=== PATIENT | male | born 1940 | race Caucasian/White ===

== ENCOUNTER → 2024-09-25 08:39 | Outpatient (CLI) | payer MEDICARE, SELFPAY ==
--- NOTE | 2024-09-25 13:08 | ST.SWALLOW ---
Visit Care Team Role Provider Type John Krishna MD Attending Provider Physician Referring Provider Specialty: Ear, Nose, Throat Address: [address] [place] [address], [id number] Email: [email or web address] Modified Barium Swallow Study CHILD CAREGIVER Modified Barium Swallow Study Start: 09/25/24 11:58 Freq: Status: Active Protocol: Document 09/25/24 11:58 LNK (Rec: 09/25/24 13:06 LNK [id number]) Modified Barium Swallow Study Total Time Visit Start Time 09:00 Visit Stop Time 09:45 Total Visit Minutes [address] Krishna ENT Reason for Referral dysphagia Setting Setting Outpatient Care Patient Information Identification Type Name,Date of Patient History Pt was seen for a Modified Barium Swallow Study at the referral of Dr. Krishna ENT secondary to difficulty with swallowing solids such as bread, crackers and some meats . Pt described a sensation of foods getting stuck in his throat. He reported that he will cough up pieces of foods he has eaten up to several hours after meals. he stated he will, at times, cough on liquids. Pt denied difficulty with pills, noting he only takes Lisinopril which is a small pill. Subjective Observations Pt was seated in the fluoroscopy chair with directions and procedures described for him. He indicated he understood and agreed to proceed. Patient Positioning Position View Lat-A/P Imaging Lateral View Textures Administered Trials Presented Thin Liquid via Spoon (IDDSI 0 ),Thin Liquid via Cup (IDDSI 0 ),Extremely Thick Liquid via Spoon (IDDSI 4),Regular (IDDSI 7) Barium Tablet Yes The IDDSI Framework Protocol: IDDSI.1 Oral Impairment Source: The Modified Barium Swallow Impairment Profile (MBSImP??) Lip Closure No labial escape Tongue Control During Bolus Hold Cohesive bolus between tongue to palatal seal Bolus Preparation/Mastication Timely & efficient chewing & mashing Bolus Transport/Lingual Motion Brisk tongue motion Oral Residue Complete oral clearance Location Tongue Initiation of Pharyngeal Swallow Bolus head at posterior laryngeal surface of epiglottis Additional Oral Impairment Observations *OME and DKS were observed to be WNL. *Dentition natural and in good hygiene *Mastication observed with rotary chew pattern. *Good bolus formation, control and AP transition. Pharyngeal Impairment Source: The Modified Barium Swallow Impairment Profile (MBSImP??) Soft Palate Elevation No bolus between soft palate & pharyngeal wall Laryngeal Elevation Part.sup.move.thyroid cart/ part.approx.arytenoids to epiglot.petiole Anterior Hyoid Excursion Partial anterior movement Epiglottic Movement No inversion Laryngeal Vestibular Closure Incomplete; narrow column air/ contrast in laryngeal vestibule Pharyngeal Stripping Wave Present - diminished Pharyngoesophageal Segment Opening Complete distention & complete duration; no obstruction of flow Tongue Base Retraction Wide column of contrast/air betwn tongue base & post. pharyngeal wall Pharyngeal Residue Collection of residue within/ on pharyngeal structures Location Valleculae Additional Pharyngeal Impairment *Reduced in tongue base Observations retraction strength *Reduced hyolaryngeal elevation *No epiglottic inversion observed *Liquid contrast penetration into the laryngeal vestibule ( silent) PAS2 Laryngeal penetration of semisolid and solid trials to the vocal folds (silent) PAS5 *Popeye tracheal aspiration ( silent) PAS7 *Cued cough partially cleared anterior tracheal wall *Significant pooling of semisolid, solid and solid residue in valeculla; vallecular pooling of liquids noted post swallows *Barium tablet caught in valeculla - several water swallows to clear tablet to the stomach *Chin tuck strategy did not improve epiglottal inversion A/P View Textures Administered Trials Presented Thin Liquid via Spoon (IDDSI 0 ) The IDDSI Framework Protocol: IDDSI.1 A/P View Observations Pharyngeal Contraction Complete Esophageal Clearance Upright Position Complete clearance; esophageal coating Vocal Fold Function Good Esophageal Function WFL Additional A-P Observations *Thin barium liquid and a calibrated tablet were assessed in the AP position *Esophageal phase of swallow observed to be WFL Clinical Impressions Dysphagia Type Pharyngeal Findings Pt presented with moderate pharyngeal dysphagia and silent aspiration risk. Pt's epiglottis did not invert across all trials. Posterior pharyngeal wall stripping was absent affecting bolus control through the pharynx. Laryngeal penetration and tracheal aspiration were observed. Pt did not reflexively respond to penetration/aspiration. Cued coughing partially cleared laryngeal/tracheal residue. Swallow therapy recommended to target base of tongue strength as well as safe swallow strategies Single sips recommended to pt with liquids to reduce aspiration risk Rehabilitation Potential Good Patient Appropriate for Therapy Yes Recommendations Diet Comments No diet change recommended at this time Additional Dietary Needs Single Sips Treatment Plan Therapy Recommendations Outpatient Speech Therapy,Base of Tongue Exercises
== END ==
PROVIDERS: Referring Provider Otolaryngology; Visit Provider Otolaryngology
DX: R13.13 Dysphagia, pharyngeal phase (principal)
CPT/HCPCS: 74230; 92611

== ENCOUNTER 2025-04-24 14:30 | Outpatient (RCR) | payer MEDICARE, SELFPAY ==
--- NOTE | 2025-01-08 17:48 | ST.OPIE ---
Visit Care Team Role Provider Type Doctor MD Myriam Family Provider Non-Staff Primary Care Provider Specialty: Medical Address: Phone: Fax: Email: John Krishna MD Attending Provider Physician Referring Provider Specialty: Ear, Nose, Throat Address: [address] [place] [address], [id number] Email: [email or web address] Speech-Language Pathology Initial Evaluation [employer] Clinical Swallow Evaluation Start: 01/08/25 17:17 Freq: Status: Active Protocol: Document 01/08/25 17:17 MM (Rec: 01/08/25 17:48 MM Desktop) Clinical Swallow Evaluation Session Time Visit Start Time 15:15 Visit Stop Time 16:00 Total Visit Minutes 45 Visit Information Visit Number Initial Evaluation Plan of Care Dates 01/08/2025-04/10/2025 Insurance Information Medicare; no PA, no copay, KX modifier after 19 PT/ST visits PCY Referral Referring Provider Dr. John Krishna Reason for Referral Dysphagia Setting Assessment Location Outpatient Care Visit Type Note Type Initial evaluation Next Note Type Next Note Type Treatment Note Patient Information Identification Type Name History Pt is an 84 yo male who presented to [facility] Speech Therapy at the referral of Dr. Krishna for evaluation of dysphagia on 01/08/2025. Pt reported c/o globus sensation with solid foods and intermittent coughing and regurgitation of PO that has been occurring for ~2 years and gradually worsened over time. Pt denied medical hx of CVA, TBI, or other neurological disorders, PNA, COPD, or other respiratory disorders, and GERD. Pt reported his baseline diet is regular solids and thin liquids, although swallowing solids is effortful. Pt participated in a Modified Barium Swallow Study (MBSS) at [facility] on 09/25/2024 which revealed moderate pharyngeal dysphagia characterized by reduced tongue base retraction, reduced hyolaryngeal elevation , absent epiglottic inversion, incomplete laryngeal vestibule closure, and diminished pharyngeal stripping wave which resulted in pharyngeal residue as well as laryngeal penetration and tracheal aspiration which were silent in nature given pt did not reflexively respond. Of note, cued coughing was observed to partially clear laryngeal and tracheal residue . It was recommended the pt receive OP ST services targeting pharyngeal dysphagia with exercises and safe swallow strategies. Subjective Observations Pt arrived on time to initial evaluation with his , Fátima, who accompanied him to the therapy room and was present throughout the evaluation. Pt was engaged and pleasant throughout the evaluation. Reported by Patient/Caregiver Pain/Discomfort No Other Symptoms Coughing,Difficulty swallowing solids,Food gets stuck Current Diet Regular (IDDSI 7) Baseline Feeding Method Independent in self-feeding Type of Patient Questionnaire (e.g., EAT Eating Assessment Tool-10 (EAT -10, MDADI, etc.) -10) Results Pt completed the Eating Assessment Tool-10 (EAT-10), a patient-reported outcome measure used to assess swallowing difficulties, or dysphagia. It consists of 10 questions that explore how swallowing issues affect a pt? s daily life, including the physical and emotional challenges they experience. Pt ?s rate the severity of their swallowing difficulties on a scale from 0 (no problem) to 4 (severe problem). A total score of 10 was reported, scores of 3 or higher are abnormal and may indicate problems will swallowing efficiency or safety. The IDDSI Framework Protocol: IDDSI.1 Objective Assessment Mental Status Alert,Responsive,Cooperative Oral Integrity WFL Dentition Within normal limits Lip Function Within normal limits Tongue Function Within normal limits Jaw Function Within normal limits Hard/Soft Palate Function Within normal limits Respiratory Sufficiency Within normal limits Comment Oral mechanism exam revealed adequate dentition, oral health, and cranial nerves grossly intact bilaterally. No baseline cough observed prior to PO trials. Pt was able to easily and effectively elicit a volitional cough, subjectively judged to have glottal attack. Food and Liquid Trials Position During Assessment Upright (90 degrees),In chair Liquids Trialed Thin (IDDSI 0) Solid Trials Regular (IDDSI 7) Administration Type Cup single sip,Self-feeding Oral Impairment Within normal limits Oral Phase Comments Pt demonstrated adequate bolus retrieval, oral containment, bolus manipulation, and oral clearance across PO trials of thin liquids (3 oz water) via cup sip and regular solid (x1 cindy cracker). Pharyngeal Impairment Moderately impaired Pharyngeal Phase Comments Clinical signs/symptoms of pharyngeal dysphagia include multiple swallows and intermittent cough with partial regurgitation of PO. Pt endorsed globus sensation / p regular solid trials and independently utilized liquid wash to attempt to clear. This is consistent with pt report and MBSS report which revealed moderate pharyngeal dysphagia . Fatigue/Endurance Endurance WNL The IDDSI Framework Protocol: IDDSI.1 Findings Swallowing Function Pharyngeal phase dysphagia Severity of Swallow Impairment Moderately impaired Prognosis Good Based on Cognitive status,Family support,Other (comment) Comment Ambulatory status, respiratory status, good oral health Impact on Safety and Functioning Risk for aspiration Recommendations Swallowing Treatment Yes Frequency 1/wk Duration 30 minutes Recommended Solids Regular (IDDSI 7) Recommended Liquids Thin (IDDSI 0) Other Recommendations Based on MBSS results, clinical swallow evaluation, and pt report, the pt presents with moderate pharyngeal dysphagia resulting in pharyngeal residue as well as silent laryngeal penetration and tracheal aspiration. ST recommends continuing baseline diet of regular solids and thin liquids, this is supported by pt's respiratory stability on room air, ambulatory status, good oral health, independence for feeding, and OME/CNE WFL. ST also recommends further OP ST tx consisting of safe swallow strategies (sit upright, slow rate, small bites/sips, alternate bites with sips, supraglottic swallow, oral care) and swallow exercises. Safety Precautions/Swallowing Remain upright (90 degrees) Recommendations during all oral intake,Upright position at least 30 minutes after meals,Small bites and sips when eating,Slow rate; swallow between bites, Alternate liquids and solids, Strict oral care after intake Medication Recommendations As Tolerated Education Patient/Caregiver Education Described results of evaluation,Patient expressed understanding of evaluation, Patient expressed agreement with goals & treatment plans, Family/caregivers expressed understanding of evaluation, Family/caregivers expressed agreement with goals & treatment plans,Patient expressed understanding of safety precautions,Family/ caregivers expressed understanding of safety precautions Goals Short-term Goals STG1: Pt will use safe swallow strategies (sit upright, slow rate, small bites/sips, alternate bites with sips, supraglottic swallow, etc.) independently to reduce risk of aspiration and facilitate clearance of bolus through pharynx. STG2: Pt will perform exercises to increase strength of swallow musculature with emphasis on tongue base retraction, hyolaryngeal elevation, epiglottic inversion, laryngeal vestibule closure and PPW constriction independently y to improve swallow safety and efficiency. STG3: Pt will tolerate application of NMES during swallow exercises in order to improve swallow safety and efficiency. Long-term Goals Pt will consume the safest and least restrictive diet with no clinical signs/symptoms of pharyngeal dysphagia in order to meet nutrition/hydration needs.
--- NOTE | 2025-01-08 17:50 | ST.OPPOC ---
Physical, Occupational & Speech Therapy At [facility] Visit Care Team Role Provider Type Doctor MD Myriam Family Provider Non-Staff Primary Care Provider Address: Phone: Fax: John Krishna MD Attending Provider Physician Referring Provider Address: [address] [place] [address], [address] Speech Pathology Plan of Care Plan of Care Dates 01/08/2025-04/10/[address] John Krishna Patient History Pt is an 84 yo male who presented to [facility] Speech Therapy at the referral of Dr. Krishna for evaluation of dysphagia on 01/08/2025 . Pt reported c/o globus sensation with solid foods and intermittent coughing and regurgitation of PO that has been occurring for ~2 years and gradually worsened over time. Pt denied medical hx of CVA, TBI, or other neurological disorders, PNA, COPD, or other respiratory disorders, and GERD. Pt reported his baseline diet is regular solids and thin liquids, although swallowing solids is effortful . Pt participated in a Modified Barium Swallow Study (MBSS) at [facility] on 09/25/2024 which revealed moderate pharyngeal dysphagia characterized by reduced tongue base retraction, reduced hyolaryngeal elevation, absent epiglottic inversion, incomplete laryngeal vestibule closure, and diminished pharyngeal stripping wave which resulted in pharyngeal residue as well as laryngeal penetration and tracheal aspiration which were silent in nature given pt did not reflexively respond. Of note, cued coughing was observed to partially clear laryngeal and tracheal residue. It was recommended the pt receive OP ST services targeting pharyngeal dysphagia with exercises and safe swallow strategies. MBS Comments Pt presented with moderate pharyngeal dysphagia and silent aspiration risk. Pt's epiglottis did not invert across all trials. Posterior pharyngeal wall stripping was absent affecting bolus control through the pharynx. Laryngeal penetration and tracheal aspiration were observed. Pt did not reflexively respond to penetration/aspiration. Cued coughing partially cleared laryngeal/tracheal residue. Swallow therapy recommended to target base of tongue strength as well as safe swallow strategies Single sips recommended to pt with liquids to reduce aspiration risk. Short-term Goals STG1: Pt will use safe swallow strategies (sit upright, slow rate, small single bites/sips, alternate bites with sips, supraglottic swallow, etc.) independently to reduce risk of aspiration and facilitate clearance of bolus through pharynx. STG2: Pt will perform exercises to increase strength of swallow musculature with emphasis on tongue base retraction, hyolaryngeal elevation, epiglottic inversion, laryngeal vestibule closure and PPW constriction independently y to improve swallow safety and efficiency. STG3: Pt will tolerate application of NMES during swallow exercises in order to improve swallow safety and efficiency. Long-term Goals Pt will consume the safest and least restrictive diet with no clinical signs/symptoms of pharyngeal dysphagia in order to meet nutrition/ hydration needs. Comment: Electronically Signed by: NORMA Peck 01/08/25 3818 If you are in agreement with this Plan of Care, please return a signed and dated copy. I have reviewed this Plan of Care and certify that the skilled therapy services above are required to meet the patient?s needs. Physician Signature Date Printed Name and Credentials Clinical Instructor Signature Printed Name and Credentials
--- NOTE | 2025-01-16 16:51 | ST.OPTN ---
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 MACHINE TENDER Treatment Note Start: 01/08/25 17:17 Freq: Status: Active Protocol: Document 01/16/25 16:01 MM (Rec: 01/16/25 16:15 MM Desktop) Speech Pathology Treatment Note Session Time Visit Start Time 15:15 Visit Stop Time 15:55 Total Visit Minutes 40 Visit Information Visit Number 2 Plan of Care Dates 01/08/2025-04/10/2025 Insurance Information Medicare; no PA, no copay, KX after 19 visits Setting Treatment Setting Outpatient Care Visit Type Note Type Treatment Note Next Note Type Next Note Type Treatment Note General Information Patient History Pt is an 84 yo male who presented to [facility] Speech Therapy at the referral of Dr. Krishna for evaluation of dysphagia on 01/08/2025. Pt reported c/o globus sensation with solid foods and intermittent coughing and regurgitation of PO that has been occurring for ~2 years and gradually worsened over time. Pt denied medical hx of CVA, TBI, or other neurological disorders, PNA, COPD, or other respiratory disorders, and GERD. Pt reported his baseline diet is regular solids and thin liquids, although swallowing solids is effortful. Pt participated in a Modified Barium Swallow Study (MBSS) at [facility] on 09/25/2024 which revealed moderate pharyngeal dysphagia characterized by reduced tongue base retraction, reduced hyolaryngeal elevation , absent epiglottic inversion, incomplete laryngeal vestibule closure, and diminished pharyngeal stripping wave which resulted in pharyngeal residue as well as laryngeal penetration and tracheal aspiration which were silent in nature given pt did not reflexively respond. Of note, cued coughing was observed to partially clear laryngeal and tracheal residue . It was recommended the pt receive OP ST services targeting pharyngeal dysphagia with exercises and safe swallow strategies. Subjective Identification Type Name Observations/Patient Presentation Pt arrived on time to therapy session with his who accompanied him to the therapy room and was present throughout the session. Pt was engaged, cooperative, and pleasant throughout the session. Pt reported completing HEP of safe swallow strategies which he noted helped to decrease s/sx of dysphagia, endorsed this. Chief Complaint(s) Swallowing Objective Short Term Goals STG1: Pt will use safe swallow strategies (sit upright, slow rate, small single bites/sips , alternate bites with sips, supraglottic swallow, etc.) independently to reduce risk of aspiration and facilitate clearance of bolus through pharynx. STG2: Pt will perform exercises to increase strength of swallow musculature with emphasis on tongue base retraction, hyolaryngeal elevation, epiglottic inversion, laryngeal vestibule closure, and PPW constriction independently to improve swallow safety and efficiency. STG3: Pt will tolerate application of NMES during swallow exercises in order to improve swallow safety and efficiency. Long-Term Goals Pt will consume safest and least restrictive diet with no clinical signs and symptoms of pharyngeal dysphagia in order to meet nutrition/ hydration needs and improve overall quality of life. Treatment Activities Reviewed results of MBSS and safe swallow strategies. Introduced swallow exercises. Discussed NMES. Assessment Rehab Potential Good Impairments Identified Swallow Assessment of Overall Progress Improving Assessment of Improvement ST reviewed results of MBSS with pt and pt's verbalizing understanding. ST reviewed safe swallow strategies (sit upright, slow rate, small single bites/sips, alternate bites with sips, supraglottic swallow, etc.) with pt reporting having utilized these over the past week since initial evaluation and noting improvement in overt signs/symptoms of dysphagia when utilized, pt's endorsed. ST introduced personal dysphagia exercise program to include effortful swallows, chin tuck against resistance, and pitch glides. Following instruction and model by ST, pt completed the following exercises independently: 1. Effortful swallows x10 2. Chin tucks against resistance x10 3 second holds 3. Pitch glides x10 ST provided pt with handout of each exercise with rationale, instructions (steps, repetitions, and frequency). Pt verbalized understanding and agreement with personal dysphagia exercise program. ST also discussed possibility of implementing neuromuscular electrical stimulation (NMES) via Vital Stim with dysphagia exercises in future session. Reviewed with Patient Goals,Progress Being Made,Home Exercise Program Plan Amount of Therapy Recommended 3 Months Frequency of Treatment Once a Week Length of Session 30 Minutes Treatment Emphasis Next Session Swallow strategies, dysphagia exercises, NMES Therapeutic Contents Client Education,Swallowing/ Feeding Provided Patient/Caregiver Instruction Home Exercise Program,Plan of Care,Questions/Concerns
--- NOTE | 2025-01-23 17:34 | ST.OPTN ---
Visit Care Team Role Provider Type Doctor MD Myriam Family Provider Non-Staff Primary Care Provider Address: Phone: Fax: John Krishna MD Attending Provider Physician Referring Provider Address: [address] [place] [address], [id number] TECHNOLOGY INFUSION SPECIALIST Treatment Note TECHNOLOGY INFUSION SPECIALIST Treatment Note Start: 01/08/25 17:17 Freq: Status: Active Protocol: Document 01/23/25 17:27 MM (Rec: 01/23/25 17:34 MM Desktop) Speech Pathology Treatment Note Session Time Visit Start Time 15:15 Visit Stop Time 16:00 Total Visit Minutes 45 Visit Information Visit Number 3 Plan of Care Dates 01/08/2025-04/10/2025 Insurance Medicare; no PA, no copay, KX after 19 visits Information Setting Treatment Setting Outpatient Care Visit Type Note Type Treatment Note Next Note Type Next Note Type Treatment Note General Information Patient History Pt is an 84 yo male who presented to [facility] Speech Therapy at the referral of Dr. Krishna for evaluation of dysphagia on 01/08/2025. Pt reported c/o globus sensation with solid foods and intermittent coughing and regurgitation of PO that has been occurring for ~2 years and gradually worsened over time . Pt denied medical hx of CVA, TBI, or other neurological disorders, PNA, COPD, or other respiratory disorders, and GERD. Pt reported his baseline diet is regular solids and thin liquids, although swallowing solids is effortful. Pt participated in a Modified Barium Swallow Study (MBSS) at [facility] on 2024 which revealed moderate pharyngeal dysphagia characterized by reduced tongue base retraction, reduced hyolaryngeal elevation, absent epiglottic inversion, incomplete laryngeal vestibule closure, and diminished pharyngeal stripping wave which resulted in pharyngeal residue as well as laryngeal penetration and tracheal aspiration which were silent in nature given pt did not reflexively respond. Of note, cued coughing was observed to partially clear laryngeal and tracheal residue. It was recommended the pt receive OP ST services targeting pharyngeal dysphagia with exercises and safe swallow strategies. Subjective Identification Type Name Observations/Patient Pt arrived on time to therapy session unaccompanied. Pt Presentation was engaged, cooperative, and pleasant throughout the session. Pt reported completing HEP of safe swallow strategies which he noted helped to decrease s/sx of dysphagia as well as his swallowing exercises. Pt also reported researching NMES/Vital Stim and consented to incorporating it in therapy. ST encouraged pt to continue HEP of safe swallow strategies and swallowing exercises, pt verbalized understanding. Chief Complaint(s) Swallowing Objective Short Term Goals STG1: Pt will use safe swallow strategies (sit upright, slow rate, small single bites/sips, alternate bites with sips, supraglottic swallow, etc.) independently to reduce risk of aspiration and facilitate clearance of bolus through pharynx. STG2: Pt will perform exercises to increase strength of swallow musculature with emphasis on tongue base retraction, hyolaryngeal elevation, epiglottic inversion, laryngeal vestibule closure, and PPW constriction independently to improve swallow safety and efficiency. STG3: Pt will tolerate application of NMES during swallow exercises in order to improve swallow safety and efficiency. Forms Analysis Manager Goals Pt will consume safest and least restrictive diet with no clinical signs and symptoms of pharyngeal dysphagia in order to meet nutrition/hydration needs and improve overall quality of life. Treatment Activities Reviewed safe swallow strategies. Completed swallow exercises with NMES in place. Assessment Rehab Potential Good Impairments Swallow Identified Assessment of Improving Overall Progress Assessment of ST reviewed safe swallow strategies (sit upright, slow Improvement rate, small single bites/sips, alternate bites with sips, supraglottic swallow, etc.) with pt reporting having utilized these over the past week since initial evaluation and noting improvement in overt signs/ symptoms of dysphagia when utilized. ST reviewed personal dysphagia exercise program of effortful swallows, chin tuck against resistance, and pitch glides. ST then introduced NMES via Vital Stim in the 3-H position. Pt completed the following exercises independently with the corresponding NMES mA: 1. Pitch glides x30 at 5.0 mA 2. Chin tucks against resistance x30 3 second holds and x3 1 minute holds at 5.5 mA 3. Effortful swallows x30 at 6.5 mA with intermittent small sips of water to facilitate swallow Reviewed with Goals,Progress Being Made,Home Exercise Program Patient Plan Amount of Therapy 3 Months Recommended Frequency of Once a Week Treatment Length of Session 30 Minutes Treatment Emphasis Swallow strategies, dysphagia exercises, NMES Next Session Therapeutic Contents Client Education,Swallowing/Feeding Provided Patient/ Home Exercise Program,Plan of Care,Questions/Concerns Caregiver Instruction
--- NOTE | 2025-01-30 15:42 | ST.OPTN ---
Visit Care Team Role Provider Type Doctor MD Myriam Family Provider Non-Staff Primary Care Provider Address: Phone: Fax: John Krishna MD Attending Provider Physician Referring Provider Address: [address] [place] [address], [id number] BOOK SOLICITOR Treatment Note BOOK SOLICITOR Treatment Note Start: 01/08/25 17:17 Freq: Status: Active Protocol: Document 01/30/25 15:31 MA (Rec: 01/30/25 15:41 MA Desktop) Speech Pathology Treatment Note Session Time Visit Start Time 15:15 Visit Stop Time 15:55 Total Visit Minutes 40 Visit Information Visit Number 4 Plan of Care Dates 01/08/2025-04/10/2025 Insurance Medicare; no PA, no copay, KX after 19 visits Information Setting Treatment Setting Outpatient Care Visit Type Note Type Treatment Note Next Note Type Next Note Type Treatment Note General Information Patient History Pt is an 84 yo male who presented to [facility] Speech Therapy at the referral of Dr. Krishna for evaluation of dysphagia on 01/08/2025. Pt reported c/o globus sensation with solid foods and intermittent coughing and regurgitation of PO that has been occurring for ~2 years and gradually worsened over time . Pt denied medical hx of CVA, TBI, or other neurological disorders, PNA, COPD, or other respiratory disorders, and GERD. Pt reported his baseline diet is regular solids and thin liquids, although swallowing solids is effortful. Pt participated in a Modified Barium Swallow Study (MBSS) at [facility] on 2024 which revealed moderate pharyngeal dysphagia characterized by reduced tongue base retraction, reduced hyolaryngeal elevation, absent epiglottic inversion, incomplete laryngeal vestibule closure, and diminished pharyngeal stripping wave which resulted in pharyngeal residue as well as laryngeal penetration and tracheal aspiration which were silent in nature given pt did not reflexively respond. Of note, cued coughing was observed to partially clear laryngeal and tracheal residue. It was recommended the pt receive OP ST services targeting pharyngeal dysphagia with exercises and safe swallow strategies. Subjective Identification Type Name Observations/Patient Pt arrived on time to therapy session unaccompanied. Pt Presentation was engaged, cooperative, and pleasant throughout the session. Pt reported completing HEP of safe swallow strategies which he noted helped to decrease s/sx of dysphagia as well as his swallowing exercises. ST encouraged pt to continue HEP of safe swallow strategies and swallowing exercises, pt verbalized understanding. Chief Complaint(s) Swallowing Objective Short Term Goals STG1: Pt will use safe swallow strategies (sit upright, slow rate, small single bites/sips, alternate bites with sips, supraglottic swallow, etc.) independently to reduce risk of aspiration and facilitate clearance of bolus through pharynx. STG2: Pt will perform exercises to increase strength of swallow musculature with emphasis on tongue base retraction, hyolaryngeal elevation, epiglottic inversion, laryngeal vestibule closure, and PPW constriction independently to improve swallow safety and efficiency. STG3: Pt will tolerate application of NMES during swallow exercises in order to improve swallow safety and efficiency. Fdc Goals Pt will consume safest and least restrictive diet with no clinical signs and symptoms of pharyngeal dysphagia in order to meet nutrition/hydration needs and improve overall quality of life. Treatment Activities Completed swallow exercises with NMES in place. Assessment Rehab Potential Good Impairments Swallow Identified Assessment of Improving Overall Progress Assessment of ST reviewed safe swallow strategies (sit upright, slow Improvement rate, small single bites/sips, alternate bites with sips, supraglottic swallow, etc.) with pt reporting having utilized these over the past week since initial evaluation and noting improvement in overt signs/ symptoms of dysphagia when utilized. ST facilitated NMES via Vital Stim in conjunction with PO trials and swallow exercises. ST placed electrodes in the 3h position. Pt completed the following exercises independently with the corresponding NMES mA: 1. Pitch glides x30 at 8.0 mA 2. Chin tucks against resistance x30 3 second holds and x3 1 minute holds at 8.0 mA 3. Effortful swallows x30 at 8.0mA with intermittent small sips of water to facilitate swallow and PO trials of cindy cracker and 4 oz of pudding. 4. Ana María x10 at 8.0mA Pt exhibited intermittent throat clearing with PO trials, especially with cindy cracker. Pt reported cindy cracker feeling stuck in throat x3 and benefitted from alternating liquids and solids to assist with clearance. ST introduced Ana María exercise providing a visual model. Pt demonstrated back with 100 % accuracy. Reviewed with Goals,Progress Being Made,Home Exercise Program Patient Plan Amount of Therapy 3 Months Recommended Frequency of Once a Week Treatment Length of Session 30 Minutes Treatment Emphasis Swallow strategies, dysphagia exercises, NMES Next Session Therapeutic Contents Client Education,Swallowing/Feeding Provided Patient/ Home Exercise Program,Plan of Care,Questions/Concerns Caregiver Instruction
--- NOTE | 2025-02-05 15:46 | ST.OPTN ---
Visit Care Team Role Provider Type Doctor MD Myriam Family Provider Non-Staff Primary Care Provider Address: Phone: Fax: John Krishna MD Attending Provider Physician Referring Provider Address: [address] [place] [address], [id number] PROJECT MANAGEMENT PROFESSOR Treatment Note PROJECT MANAGEMENT PROFESSOR Treatment Note Start: 01/08/25 17:17 Freq: Status: Active Protocol: Document 02/05/25 15:23 MA (Rec: 02/05/25 15:35 MA Desktop) Speech Pathology Treatment Note Session Time Visit Start Time 15:15 Visit Stop Time 15:55 Total Visit Minutes 40 Visit Information Visit Number 5 Plan of Care Dates 01/08/2025-04/10/2025 Insurance Medicare; no PA, no copay, KX after 19 visits Information Setting Treatment Setting Outpatient Care Visit Type Note Type Treatment Note Next Note Type Next Note Type Treatment Note General Information Patient History Pt is an 84 yo male who presented to [facility] Speech Therapy at the referral of Dr. Krishna for evaluation of dysphagia on 01/08/2025. Pt reported c/o globus sensation with solid foods and intermittent coughing and regurgitation of PO that has been occurring for ~2 years and gradually worsened over time . Pt denied medical hx of CVA, TBI, or other neurological disorders, PNA, COPD, or other respiratory disorders, and GERD. Pt reported his baseline diet is regular solids and thin liquids, although swallowing solids is effortful. Pt participated in a Modified Barium Swallow Study (MBSS) at [facility] on 2024 which revealed moderate pharyngeal dysphagia characterized by reduced tongue base retraction, reduced hyolaryngeal elevation, absent epiglottic inversion, incomplete laryngeal vestibule closure, and diminished pharyngeal stripping wave which resulted in pharyngeal residue as well as laryngeal penetration and tracheal aspiration which were silent in nature given pt did not reflexively respond. Of note, cued coughing was observed to partially clear laryngeal and tracheal residue. It was recommended the pt receive OP ST services targeting pharyngeal dysphagia with exercises and safe swallow strategies. Subjective Identification Type Name Observations/Patient Pt arrived on time to therapy session unaccompanied. Pt Presentation was engaged, cooperative, and pleasant throughout the session. Pt reported completing HEP of safe swallow strategies which he noted helped to decrease s/sx of dysphagia as well as his swallowing exercises. ST encouraged pt to continue HEP of safe swallow strategies and swallowing exercises, pt verbalized understanding. Chief Complaint(s) Swallowing Objective Short Term Goals STG1: Pt will use safe swallow strategies (sit upright, slow rate, small single bites/sips, alternate bites with sips, supraglottic swallow, etc.) independently to reduce risk of aspiration and facilitate clearance of bolus through pharynx. STG2: Pt will perform exercises to increase strength of swallow musculature with emphasis on tongue base retraction, hyolaryngeal elevation, epiglottic inversion, laryngeal vestibule closure, and PPW constriction independently to improve swallow safety and efficiency. STG3: Pt will tolerate application of NMES during swallow exercises in order to improve swallow safety and efficiency. Fdc Goals Pt will consume safest and least restrictive diet with no clinical signs and symptoms of pharyngeal dysphagia in order to meet nutrition/hydration needs and improve overall quality of life. Treatment Activities Completed swallow exercises with NMES in place. Assessment Rehab Potential Good Impairments Swallow Identified Assessment of Improving Overall Progress Assessment of ST reviewed safe swallow strategies (sit upright, slow Improvement rate, small single bites/sips, alternate bites with sips, supraglottic swallow, etc.) with pt reporting having utilized these over the past week since initial evaluation and noting improvement in overt signs/ symptoms of dysphagia when utilized. ST facilitated NMES via Vital Stim in conjunction with PO trials and swallow exercises. ST placed electrodes in the 3h position. Pt completed the following exercises independently with the corresponding NMES mA: 1. Pitch glides x30 at 8.0 mA 2. Chin tucks against resistance x30 3 second holds and x3 1 minute holds at 8.0 mA 3. Effortful swallows x30 at 8.0mA with intermittent small sips of water to facilitate swallow and PO trials of cindy cracker and 4 oz of peaches. 4. Ana María x10 at 8.0mA 5. Supraglottic swallow exercise x10 at 8.0mA Pt exhibited intermittent throat clearing with PO trials, especially with cindy cracker. Pt reported cindy cracker feeling stuck in throat x3 and benefitted from alternating liquids and solids to assist with clearance. Pt consumed about 5 oz of thin water via cup. ST educated Pt on recommendation to continue swallow exercises at home. Reviewed with Goals,Progress Being Made,Home Exercise Program Patient Plan Amount of Therapy 3 Months Recommended Frequency of Once a Week Treatment Length of Session 30 Minutes Treatment Emphasis Swallow strategies, dysphagia exercises, NMES Next Session Therapeutic Contents Client Education,Swallowing/Feeding Provided Patient/ Home Exercise Program,Plan of Care,Questions/Concerns Caregiver Instruction
--- NOTE | 2025-02-13 14:46 | ST.OPTN ---
Visit Care Team Role Provider Type Doctor MD Myriam Family Provider Non-Staff Primary Care Provider Address: Phone: Fax: John Krsihna MD Attending Provider Physician Referring Provider Address: [address] [place] [address], [id number] WILDLAND FIREFIGHTER Treatment Note WILDLAND FIREFIGHTER Treatment Note Start: 01/08/25 17:17 Freq: Status: Active Protocol: Document 02/13/25 14:44 MA (Rec: 02/13/25 14:46 MA Desktop) Speech Pathology Treatment Note Session Time Visit Start Time 14:30 Visit Stop Time 15:05 Total Visit Minutes 35 Visit Information Visit Number 6 Plan of Care Dates 01/08/2025-04/10/2025 Insurance Medicare; no PA, no copay, KX after 19 visits Information Setting Treatment Setting Outpatient Care Visit Type Note Type Treatment Note Next Note Type Next Note Type Treatment Note General Information Patient History Pt is an 84 yo male who presented to [facility] Speech Therapy at the referral of Dr. Kirshna for evaluation of dysphagia on 01/08/2025. Pt reported c/o globus sensation with solid foods and intermittent coughing and regurgitation of PO that has been occurring for ~2 years and gradually worsened over time . Pt denied medical hx of CVA, TBI, or other neurological disorders, PNA, COPD, or other respiratory disorders, and GERD. Pt reported his baseline diet is regular solids and thin liquids, although swallowing solids is effortful. Pt participated in a Modified Barium Swallow Study (MBSS) at [facility] on 2024 which revealed moderate pharyngeal dysphagia characterized by reduced tongue base retraction, reduced hyolaryngeal elevation, absent epiglottic inversion, incomplete laryngeal vestibule closure, and diminished pharyngeal stripping wave which resulted in pharyngeal residue as well as laryngeal penetration and tracheal aspiration which were silent in nature given pt did not reflexively respond. Of note, cued coughing was observed to partially clear laryngeal and tracheal residue. It was recommended the pt receive OP ST services targeting pharyngeal dysphagia with exercises and safe swallow strategies. Subjective Identification Type Name Observations/Patient Pt arrived on time to therapy session unaccompanied. Pt Presentation was engaged, cooperative, and pleasant throughout the session. Pt reported completing HEP of safe swallow strategies which he noted helped to decrease s/sx of dysphagia as well as his swallowing exercises. ST encouraged pt to continue HEP of safe swallow strategies and swallowing exercises, pt verbalized understanding. Chief Complaint(s) Swallowing Objective Short Term Goals STG1: Pt will use safe swallow strategies (sit upright, slow rate, small single bites/sips, alternate bites with sips, supraglottic swallow, etc.) independently to reduce risk of aspiration and facilitate clearance of bolus through pharynx. STG2: Pt will perform exercises to increase strength of swallow musculature with emphasis on tongue base retraction, hyolaryngeal elevation, epiglottic inversion, laryngeal vestibule closure, and PPW constriction independently to improve swallow safety and efficiency. STG3: Pt will tolerate application of NMES during swallow exercises in order to improve swallow safety and efficiency. Intermediate Goals Pt will consume safest and least restrictive diet with no clinical signs and symptoms of pharyngeal dysphagia in order to meet nutrition/hydration needs and improve overall quality of life. Treatment Activities Completed swallow exercises with NMES in place. Assessment Rehab Potential Good Impairments Swallow Identified Assessment of Improving Overall Progress Assessment of ST reviewed safe swallow strategies (sit upright, slow Improvement rate, small single bites/sips, alternate bites with sips, supraglottic swallow, etc.) with pt reporting having utilized these over the past week since initial evaluation and noting improvement in overt signs/ symptoms of dysphagia when utilized. ST facilitated NMES via Vital Stim in conjunction with PO trials and swallow exercises. ST placed electrodes in the 3h position. Pt completed the following exercises independently with the corresponding NMES mA: 1. Pitch glides x30 at 8.0 mA 2. Chin tucks against resistance x30 3 second holds and x3 1 minute holds at 8.0 mA 3. Effortful swallows x30 at 8.0mA with intermittent small sips of water to facilitate swallow and PO trials of cindy cracker and 4 oz of peaches. 4. Ana María x10 at 8.0mA 5. Supraglottic swallow exercise x10 at 8.0mA Pt exhibited intermittent throat clearing with PO trials, especially with cindy cracker. Pt benefitted from alternating liquids and solids to assist with clearance. Pt consumed about 5 oz of thin water via cup . ST educated Pt on recommendation to continue swallow exercises at home. Reviewed with Goals,Progress Being Made,Home Exercise Program Patient Plan Amount of Therapy 3 Months Recommended Frequency of Once a Week Treatment Length of Session 30 Minutes Treatment Emphasis Swallow strategies, dysphagia exercises, NMES Next Session Therapeutic Contents Client Education,Swallowing/Feeding Provided Patient/ Home Exercise Program,Plan of Care,Questions/Concerns Caregiver Instruction
--- NOTE | 2025-02-20 14:51 | ST.OPTN ---
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 Start: 01/08/25 17:17 Freq: Status: Active Protocol: Document 02/20/25 14:47 MA (Rec: 02/20/25 14:51 MA Desktop) Speech Pathology Treatment Note Session Time Visit Start Time 14:30 Visit Stop Time 15:05 Total Visit Minutes 35 Visit Information Visit Number 7 Plan of Care Dates 01/08/2025-04/10/2025 Insurance Medicare; no PA, no copay, KX after 19 visits Information Setting Treatment Setting Outpatient Care Visit Type Note Type Treatment Note Next Note Type Next Note Type Treatment Note General Information Patient History Pt is an 84 yo male who presented to [facility] Speech Therapy at the referral of Dr. Krishna for evaluation of dysphagia on 01/08/2025. Pt reported c/o globus sensation with solid foods and intermittent coughing and regurgitation of PO that has been occurring for ~2 years and gradually worsened over time . Pt denied medical hx of CVA, TBI, or other neurological disorders, PNA, COPD, or other respiratory disorders, and GERD. Pt reported his baseline diet is regular solids and thin liquids, although swallowing solids is effortful. Pt participated in a Modified Barium Swallow Study (MBSS) at [facility] on 2024 which revealed moderate pharyngeal dysphagia characterized by reduced tongue base retraction, reduced hyolaryngeal elevation, absent epiglottic inversion, incomplete laryngeal vestibule closure, and diminished pharyngeal stripping wave which resulted in pharyngeal residue as well as laryngeal penetration and tracheal aspiration which were silent in nature given pt did not reflexively respond. Of note, cued coughing was observed to partially clear laryngeal and tracheal residue. It was recommended the pt receive OP ST services targeting pharyngeal dysphagia with exercises and safe swallow strategies. Subjective Identification Type Name Observations/Patient Pt arrived on time to therapy session unaccompanied. Pt Presentation was engaged, cooperative, and pleasant throughout the session. Pt reported completing HEP of safe swallow strategies which he noted helped to decrease s/sx of dysphagia as well as his swallowing exercises. ST encouraged pt to continue HEP of safe swallow strategies and swallowing exercises, pt verbalized understanding. Chief Complaint(s) Swallowing Objective Short Term Goals STG1: Pt will use safe swallow strategies (sit upright, slow rate, small single bites/sips, alternate bites with sips, supraglottic swallow, etc.) independently to reduce risk of aspiration and facilitate clearance of bolus through pharynx. STG2: Pt will perform exercises to increase strength of swallow musculature with emphasis on tongue base retraction, hyolaryngeal elevation, epiglottic inversion, laryngeal vestibule closure, and PPW constriction independently to improve swallow safety and efficiency. STG3: Pt will tolerate application of NMES during swallow exercises in order to improve swallow safety and efficiency. Custodial Goals Pt will consume safest and least restrictive diet with no clinical signs and symptoms of pharyngeal dysphagia in order to meet nutrition/hydration needs and improve overall quality of life. Treatment Activities Completed swallow exercises with NMES in place. Assessment Rehab Potential Good Impairments Swallow Identified Assessment of Improving Overall Progress Assessment of ST reviewed safe swallow strategies (sit upright, slow Improvement rate, small single bites/sips, alternate bites with sips, supraglottic swallow, etc.) with pt reporting having utilized these over the past week since initial evaluation and noting improvement in overt signs/ symptoms of dysphagia when utilized. ST facilitated NMES via Vital Stim in conjunction with PO trials and swallow exercises. ST placed electrodes in the 3h position. Pt completed the following exercises independently with the corresponding NMES mA: 1. Pitch glides x30 at 8.0 mA 2. Chin tucks against resistance x30 3 second holds and x3 1 minute holds at 8.0 mA 3. Effortful swallows x30 at 8.0mA with intermittent small sips of water to facilitate swallow and PO trials of cindy cracker and peanut butter and 4 oz of pudding. 4. Ana María x10 at 8.0mA 5. Supraglottic swallow exercise x10 at 8.0mA Pt exhibited intermittent throat clearing with PO trials, especially with cindy cracker with peanut butter and reported stuck x1. Pt benefitted from alternating liquids and solids to assist with clearance . Pt consumed about 5 oz of thin water via cup. ST educated Pt on recommendation to continue swallow exercises at home. Reviewed with Goals,Progress Being Made,Home Exercise Program Patient Plan Amount of Therapy 3 Months Recommended Frequency of Once a Week Treatment Length of Session 30 Minutes Treatment Emphasis Swallow strategies, dysphagia exercises, NMES Next Session Therapeutic Contents Client Education,Swallowing/Feeding Provided Patient/ Home Exercise Program,Plan of Care,Questions/Concerns Caregiver Instruction
--- NOTE | 2025-03-27 14:58 | ST.OPTN ---
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 Start: 01/08/25 17:17 Freq: Status: Active Protocol: Document 03/27/25 14:43 MA (Rec: 03/27/25 14:57 MA Desktop) Speech Pathology Treatment Note Session Time Visit Start Time 14:30 Visit Stop Time 15:00 Total Visit Minutes 30 Visit Information Visit Number 8 Plan of Care Dates 01/08/2025-04/10/2025 Insurance Medicare; no PA, no copay, KX after 19 visits Information Setting Treatment Setting Outpatient Care Visit Type Note Type Treatment Note Next Note Type Next Note Type Treatment Note General Information Patient History Pt is an 84 yo male who presented to [facility] Speech Therapy at the referral of Dr. Krishna for evaluation of dysphagia on 01/08/2025. Pt reported c/o globus sensation with solid foods and intermittent coughing and regurgitation of PO that has been occurring for ~2 years and gradually worsened over time . Pt denied medical hx of CVA, TBI, or other neurological disorders, PNA, COPD, or other respiratory disorders, and GERD. Pt reported his baseline diet is regular solids and thin liquids, although swallowing solids is effortful. Pt participated in a Modified Barium Swallow Study (MBSS) at [facility] on 2024 which revealed moderate pharyngeal dysphagia characterized by reduced tongue base retraction, reduced hyolaryngeal elevation, absent epiglottic inversion, incomplete laryngeal vestibule closure, and diminished pharyngeal stripping wave which resulted in pharyngeal residue as well as laryngeal penetration and tracheal aspiration which were silent in nature given pt did not reflexively respond. Of note, cued coughing was observed to partially clear laryngeal and tracheal residue. It was recommended the pt receive OP ST services targeting pharyngeal dysphagia with exercises and safe swallow strategies. Subjective Identification Type Name Observations/Patient Pt returns to therapy after being gone on vacation for Presentation 4 weeks. Pt arrived on time to therapy session unaccompanied. Pt was engaged, cooperative, and pleasant throughout the session. Pt reported completing HEP of safe swallow strategies which he noted helped to decrease s/sx of dysphagia as well as his swallowing exercises. He states he makes sure to eat slow. ST encouraged pt to continue HEP of safe swallow strategies and swallowing exercises, pt verbalized understanding. Chief Complaint(s) Swallowing Objective Short Term Goals STG1: Pt will use safe swallow strategies (sit upright, slow rate, small single bites/sips, alternate bites with sips, supraglottic swallow, etc.) independently to reduce risk of aspiration and facilitate clearance of bolus through pharynx. STG2: Pt will perform exercises to increase strength of swallow musculature with emphasis on tongue base retraction, hyolaryngeal elevation, epiglottic inversion, laryngeal vestibule closure, and PPW constriction independently to improve swallow safety and efficiency. STG3: Pt will tolerate application of NMES during swallow exercises in order to improve swallow safety and efficiency. Usp Goals Pt will consume safest and least restrictive diet with no clinical signs and symptoms of pharyngeal dysphagia in order to meet nutrition/hydration needs and improve overall quality of life. Treatment Activities No NMES this date d/t part of therapy being focused on discussing how swallowing has been going since last seen and swallow exercises and time constraint. Therapeutic PO trials of regular solids and pureed solids with thin liquids in conjunction with swallow exercise effortful swallow, facilitation of additional swallow exercises such as Supraglottic swallow and CTAR Assessment Rehab Potential Good Impairments Swallow Identified Assessment of Improving Overall Progress Assessment of ST reviewed safe swallow strategies (sit upright, slow Improvement rate, small single bites/sips, alternate bites with sips, supraglottic swallow, etc.) with pt reporting having utilized these over the past week since initial evaluation and noting improvement in overt signs/ symptoms of dysphagia when utilized. 1. Chin tucks against resistance x30 3 second holds and x3 1 minute holds 2. Effortful swallows x30 at 8.0mA with intermittent small sips of water to facilitate swallow and PO trials of cindy cracker and pudding and 4 oz of pudding. 3. Supraglottic swallow exercise x10 Pt exhibited intermittent throat clearing with PO trials, especially with cindy cracker. Pt benefitted from alternating liquids and solids to assist with clearance. Pt consumed about 5 oz of thin water via cup . ST educated Pt on recommendation to continue swallow exercises at home and going forward with therapy. Reviewed with Goals,Progress Being Made,Home Exercise Program Patient Plan Amount of Therapy 3 Months Recommended Frequency of Once a Week Treatment Length of Session 30 Minutes Treatment Emphasis Swallow strategies, dysphagia exercises Next Session Therapeutic Contents Client Education,Swallowing/Feeding Provided Patient/ Home Exercise Program,Plan of Care,Questions/Concerns Caregiver Instruction
--- NOTE | 2025-04-03 14:59 | ST.OPTN ---
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 MANAGER Treatment Note Start: 01/08/25 17:17 Freq: Status: Active Protocol: Document 04/03/25 14:47 MA (Rec: 04/03/25 14:52 MA Desktop) Speech Pathology Treatment Note Session Time Visit Start Time 14:30 Visit Stop Time 15:05 Total Visit Minutes 35 Visit Information Visit Number 9 Plan of Care Dates 01/08/2025-04/10/2025 Insurance Medicare; no PA, no copay, KX after 19 visits Information Setting Treatment Setting Outpatient Care Visit Type Note Type Treatment Note Next Note Type Next Note Type Treatment Note General Information Patient History Pt is an 84 yo male who presented to [facility] Speech Therapy at the referral of Dr. Krishna for evaluation of dysphagia on 01/08/2025. Pt reported c/o globus sensation with solid foods and intermittent coughing and regurgitation of PO that has been occurring for ~2 years and gradually worsened over time . Pt denied medical hx of CVA, TBI, or other neurological disorders, PNA, COPD, or other respiratory disorders, and GERD. Pt reported his baseline diet is regular solids and thin liquids, although swallowing solids is effortful. Pt participated in a Modified Barium Swallow Study (MBSS) at [facility] on 2024 which revealed moderate pharyngeal dysphagia characterized by reduced tongue base retraction, reduced hyolaryngeal elevation, absent epiglottic inversion, incomplete laryngeal vestibule closure, and diminished pharyngeal stripping wave which resulted in pharyngeal residue as well as laryngeal penetration and tracheal aspiration which were silent in nature given pt did not reflexively respond. Of note, cued coughing was observed to partially clear laryngeal and tracheal residue. It was recommended the pt receive OP ST services targeting pharyngeal dysphagia with exercises and safe swallow strategies. Subjective Identification Type Name Observations/Patient Pt arrived on time to therapy session unaccompanied. Pt Presentation was engaged, cooperative, and pleasant throughout the session. Pt reported completing HEP of safe swallow strategies which he noted helped to decrease s/sx of dysphagia as well as his swallowing exercises. He states he makes sure to eat slow. ST encouraged pt to continue HEP of safe swallow strategies and swallowing exercises, pt verbalized understanding. Chief Complaint(s) Swallowing Patient Knowledge/ Excellent Awareness of CONSULTING MANAGER Role in Treatment Objective Short Term Goals STG1: Pt will use safe swallow strategies (sit upright, slow rate, small single bites/sips, alternate bites with sips, supraglottic swallow, etc.) independently to reduce risk of aspiration and facilitate clearance of bolus through pharynx. STG2: Pt will perform exercises to increase strength of swallow musculature with emphasis on tongue base retraction, hyolaryngeal elevation, epiglottic inversion, laryngeal vestibule closure, and PPW constriction independently to improve swallow safety and efficiency. STG3: Pt will tolerate application of NMES during swallow exercises in order to improve swallow safety and efficiency. Penitentiary Goals Pt will consume safest and least restrictive diet with no clinical signs and symptoms of pharyngeal dysphagia in order to meet nutrition/hydration needs and improve overall quality of life. Treatment Activities Completed swallow exercises with NMES in place. Assessment Rehab Potential Good Impairments Swallow Identified Assessment of Improving Overall Progress Assessment of ST reviewed safe swallow strategies (sit upright, slow Improvement rate, small single bites/sips, alternate bites with sips, supraglottic swallow, etc.) with pt reporting having utilized these over the past week since initial evaluation and noting improvement in overt signs/ symptoms of dysphagia when utilized. 1. Chin tucks against resistance x30 3 second holds and x3 1 minute holds 2. Effortful swallows x30 at 8.0mA with intermittent small sips of water to facilitate swallow and PO trials of cindy cracker and pudding and 4 oz of pudding. 3. Supraglottic swallow exercise x10 Pt reported he noticed some residue in throat when swallowing twice. Pt exhibited intermittent throat clearing with PO trials, especially with cindy cracker . Pt benefitted from alternating liquids and solids to assist with clearance. Pt consumed about 5 oz of thin water via cup. ST educated Pt on recommendation to continue swallow exercises at home and going forward with therapy. Reviewed with Goals,Progress Being Made,Home Exercise Program Patient Plan Amount of Therapy 3 Months Recommended Frequency of Once a Week Treatment Length of Session 30 Minutes Treatment Emphasis Swallow strategies, dysphagia exercises Next Session Therapeutic Contents Client Education,Swallowing/Feeding Provided Patient/ Home Exercise Program,Plan of Care,Questions/Concerns Caregiver Instruction
--- NOTE | 2025-04-10 15:55 | ST.OPPOC ---
Physical, Occupational & Speech Therapy At [facility] Visit Care Team Role Provider Type Doctor MD Myriam Family Provider Non-Staff Primary Care Provider Address: Phone: Fax: John Krishna MD Attending Provider Physician Referring Provider Address: [address] [place] [address], [id number] Speech Pathology Plan of Care Plan of Care Dates 04/11/25-07/12/[address] John Krishna Patient History Pt is an 84 yo male who presented to [facility] Speech Therapy at the referral of Dr. Krishna for evaluation of dysphagia on 01/08/2025 . Pt reported c/o globus sensation with solid foods and intermittent coughing and regurgitation of PO that has been occurring for ~2 years and gradually worsened over time. Pt denied medical hx of CVA, TBI, or other neurological disorders, PNA, COPD, or other respiratory disorders, and GERD. Pt reported his baseline diet is regular solids and thin liquids, although swallowing solids is effortful . Pt participated in a Modified Barium Swallow Study (MBSS) at [facility] on 09/25/2024 which revealed moderate pharyngeal dysphagia characterized by reduced tongue base retraction, reduced hyolaryngeal elevation, absent epiglottic inversion, incomplete laryngeal vestibule closure, and diminished pharyngeal stripping wave which resulted in pharyngeal residue as well as laryngeal penetration and tracheal aspiration which were silent in nature given pt did not reflexively respond. Of note, cued coughing was observed to partially clear laryngeal and tracheal residue. It was recommended the pt receive OP ST services targeting pharyngeal dysphagia with exercises and safe swallow strategies. Impairments Identified Swallow MBS Comments Pt presented with moderate pharyngeal dysphaga and silent aspiration risk. Pt's epiglottis did not invert across all trials. Posterior pharyngeal wall stripping was absent affecting bolus coltrol through the pharynx. Laryngeal penetration and tracheal aspiration were observed. Pt did not reflexively respond to penetration/aspiration. Cued coughing partially cleared laryngeal/tracheal residue. Swallow therpy recommended to target base of tongue strength as well as safe swallow strategies Single sips recommended to pt with liquids to reduce aspiration risk Short Term Goals STG1: Pt will use safe swallow strategies (sit upright, slow rate, small single bites/sips, alternate bites with sips, supraglottic swallow, etc.) independently to reduce risk of aspiration and facilitate clearance of bolus through pharynx. - CONTINUE STG2: Pt will perform exercises to increase strength of swallow musculature with emphasis on tongue base retraction, hyolaryngeal elevation, epiglottic inversion, laryngeal vestibule closure, and PPW constriction independently to improve swallow safety and efficiency. - CONTINUE STG3: Pt will tolerate application of NMES during swallow exercises in order to improve swallow safety and efficiency. - CONTINUE Short-term Goals STG1: Pt will use safe swallow strategies (sit upright, slow rate, small bites/sips, alternate bites with sips, supraglottic swallow, etc.) independently to reduce risk of aspiration and facilitate clearance of bolus through pharynx. STG2: Pt will perform exercises to increase strength of swallow musculature with emphasis on tongue base retraction, hyolaryngeal elevation, epiglottic inversion, laryngeal vestibule closure and PPW constriction independently y to improve swallow safety and efficiency. STG3: Pt will tolerate application of NMES during swallow exercises in order to improve swallow safety and efficiency. Senior Living Goals Pt will consume safest and least restrictive diet with no clinical signs and symptoms of pharyngeal dysphagia in order to meet nutrition/ hydration needs and improve overall quality of life. Long-term Goals Pt will consume the safest and least restrictive diet with no clinical signs/symptoms of pharyngeal dysphagia in order to meet nutrition/ hydration needs. Comment: Electronically Signed by: NORMA Mosquera 04/10/25 2521 If you are in agreement with this Plan of Care, please return a signed and dated copy. I have reviewed this Plan of Care and certify that the skilled therapy services above are required to meet the patient?s needs. Physician Signature Date Printed Name and Credentials Clinical Instructor Signature Printed Name and Credentials
--- NOTE | 2025-04-10 15:55 | ST.PROG ---
Visit Care Team Role Provider Type Doctor MD Myriam Family Provider Non-Staff Primary Care Provider Address: Phone: Fax: John Krishna MD Attending Provider Physician Referring Provider Address: [address] [place] [address], [id number] STATION ATTENDANT Progress Note STATION ATTENDANT Treatment Note Start: 01/08/25 17:17 Freq: Status: Active Protocol: Document 04/10/25 14:57 MA (Rec: 04/10/25 15:00 MA Desktop) Speech Pathology Treatment Note Session Time Visit Start Time 14:40 Visit Stop Time 15:00 Total Visit Minutes 20 Visit Information Visit Number 10 Plan of Care Dates 04/11/25-07/12/25 Insurance Medicare; no PA, no copay, KX after 19 visits Information Setting Treatment Setting Outpatient Care Visit Type Note Type Treatment Note Next Note Type Next Note Type Treatment Note General Information Patient History Pt is an 84 yo male who presented to [facility] Speech Therapy at the referral of Dr. Krishna for evaluation of dysphagia on 01/08/2025. Pt reported c/o globus sensation with solid foods and intermittent coughing and regurgitation of PO that has been occurring for ~2 years and gradually worsened over time . Pt denied medical hx of CVA, TBI, or other neurological disorders, PNA, COPD, or other respiratory disorders, and GERD. Pt reported his baseline diet is regular solids and thin liquids, although swallowing solids is effortful. Pt participated in a Modified Barium Swallow Study (MBSS) at [facility] on 2024 which revealed moderate pharyngeal dysphagia characterized by reduced tongue base retraction, reduced hyolaryngeal elevation, absent epiglottic inversion, incomplete laryngeal vestibule closure, and diminished pharyngeal stripping wave which resulted in pharyngeal residue as well as laryngeal penetration and tracheal aspiration which were silent in nature given pt did not reflexively respond. Of note, cued coughing was observed to partially clear laryngeal and tracheal residue. It was recommended the pt receive OP ST services targeting pharyngeal dysphagia with exercises and safe swallow strategies. Subjective Identification Type Name Observations/Patient Pt arrived about 10 minutes late to therapy session Presentation unaccompanied. Pt was engaged, cooperative, and pleasant throughout the session. Pt reported completing HEP of safe swallow strategies which he noted helped to decrease s/sx of dysphagia as well as his swallowing exercises. He states he makes sure to eat slow. ST encouraged pt to continue HEP of safe swallow strategies and swallowing exercises, pt verbalized understanding. Pt POC dates end, however therapy continues to be warranted d/t Pt yet to reach goals. Pt has also hit 10 visits, which warrants a progress note . Chief Complaint(s) Swallowing Patient Knowledge/ Excellent Awareness of STATION ATTENDANT Role in Treatment Objective Short Term Goals STG1: Pt will use safe swallow strategies (sit upright, slow rate, small single bites/sips, alternate bites with sips, supraglottic swallow, etc.) independently to reduce risk of aspiration and facilitate clearance of bolus through pharynx. - CONTINUE STG2: Pt will perform exercises to increase strength of swallow musculature with emphasis on tongue base retraction, hyolaryngeal elevation, epiglottic inversion, laryngeal vestibule closure, and PPW constriction independently to improve swallow safety and efficiency. - CONTINUE STG3: Pt will tolerate application of NMES during swallow exercises in order to improve swallow safety and efficiency. - CONTINUE Manager Solar Goals Pt will consume safest and least restrictive diet with no clinical signs and symptoms of pharyngeal dysphagia in order to meet nutrition/hydration needs and improve overall quality of life. Treatment Activities Completed swallow exercises with NMES in place. Assessment Patient Response to Excellent Treatment Rehab Potential Excellent Impairments Swallow Identified Assessment of Improving Overall Progress Assessment of ST reviewed safe swallow strategies (sit upright, slow Improvement rate, small single bites/sips, alternate bites with sips, supraglottic swallow, etc.) with pt reporting having utilized these over the past week since initial evaluation and noting improvement in overt signs/ symptoms of dysphagia when utilized. 1. Chin tucks against resistance not complete d/t time constraint 2. Effortful swallows x30 at 8.0mA with intermittent small sips of water to facilitate swallow and PO trials of cindy cracker and pudding/ 3. Supraglottic swallow exercise not completed d/t time Pt reported he noticed some residue in throat when swallowing cindy cracker. Intermittent throat clearing with cindy cracker. Pt benefitted from alternating liquids and solids to assist with clearance. Pt consumed about 5 oz of thin water via cup. ST educated Pt on recommendation to continue swallow exercises at home and going forward with therapy. Reviewed with Goals,Progress Being Made,Home Exercise Program Patient Plan Amount of Therapy 3 Months Recommended Frequency of Once a Week Treatment Length of Session 30 Minutes Treatment Emphasis Swallow strategies, dysphagia exercises Next Session Therapeutic Contents Client Education,Swallowing/Feeding Provided Patient/ Home Exercise Program,Plan of Care,Questions/Concerns Caregiver Instruction Visit Care Team Role Provider Type Doctor Myriam, Family Provider Non-Staff Primary Care Provider Specialty: Medical Address: Phone: Fax: Email: John Krishna MD Attending Provider Physician Referring Provider Specialty: Ear, Nose, Throat Address: [address] [place] [address], [id number] Email: [email or web address]
--- NOTE | 2025-04-17 14:53 | ST.OPTN ---
Visit Care Team Role Provider Type Doctor MD Myriam Family Provider Non-Staff Primary Care Provider Address: Phone: Fax: John Krishna MD Attending Provider Physician Referring Provider Address: [address] [place] [address], [id number] INDUSTRIAL EQUIPMENT MECHANIC Treatment Note INDUSTRIAL EQUIPMENT MECHANIC Treatment Note Start: 01/08/25 17:17 Freq: Status: Active Protocol: Document 04/17/25 14:42 MA (Rec: 04/17/25 14:53 MA Desktop) Speech Pathology Treatment Note Session Time Visit Start Time 14:30 Visit Stop Time 15:00 Total Visit Minutes 30 Visit Information Visit Number 11 Plan of Care Dates 04/11/25-07/12/25 Insurance Medicare; no PA, no copay, KX after 19 visits Information Setting Treatment Setting Outpatient Care Visit Type Note Type Treatment Note Next Note Type Next Note Type Treatment Note General Information Patient History Pt is an 84 yo male who presented to [facility] Speech Therapy at the referral of Dr. Krishna for evaluation of dysphagia on 01/08/2025. Pt reported c/o globus sensation with solid foods and intermittent coughing and regurgitation of PO that has been occurring for ~2 years and gradually worsened over time . Pt denied medical hx of CVA, TBI, or other neurological disorders, PNA, COPD, or other respiratory disorders, and GERD. Pt reported his baseline diet is regular solids and thin liquids, although swallowing solids is effortful. Pt participated in a Modified Barium Swallow Study (MBSS) at [facility] on 2024 which revealed moderate pharyngeal dysphagia characterized by reduced tongue base retraction, reduced hyolaryngeal elevation, absent epiglottic inversion, incomplete laryngeal vestibule closure, and diminished pharyngeal stripping wave which resulted in pharyngeal residue as well as laryngeal penetration and tracheal aspiration which were silent in nature given pt did not reflexively respond. Of note, cued coughing was observed to partially clear laryngeal and tracheal residue. It was recommended the pt receive OP ST services targeting pharyngeal dysphagia with exercises and safe swallow strategies. Subjective Identification Type Name Observations/Patient Pt arrived to therapy on time unaccompanied. Pt was Presentation engaged, cooperative, and pleasant throughout the session. Pt reported completing HEP of safe swallow strategies which he noted helped to decrease s/sx of dysphagia as well as his swallowing exercises. He states he makes sure to eat slow. ST encouraged pt to continue HEP of safe swallow strategies and swallowing exercises, pt verbalized understanding. Chief Complaint(s) Swallowing Patient Knowledge/ Excellent Awareness of INDUSTRIAL EQUIPMENT MECHANIC Role in Treatment Objective Short Term Goals STG1: Pt will use safe swallow strategies (sit upright, slow rate, small single bites/sips, alternate bites with sips, supraglottic swallow, etc.) independently to reduce risk of aspiration and facilitate clearance of bolus through pharynx. - CONTINUE STG2: Pt will perform exercises to increase strength of swallow musculature with emphasis on tongue base retraction, hyolaryngeal elevation, epiglottic inversion, laryngeal vestibule closure, and PPW constriction independently to improve swallow safety and efficiency. - CONTINUE STG3: Pt will tolerate application of NMES during swallow exercises in order to improve swallow safety and efficiency. - CONTINUE Intermediate Goals Pt will consume safest and least restrictive diet with no clinical signs and symptoms of pharyngeal dysphagia in order to meet nutrition/hydration needs and improve overall quality of life. Treatment Activities Completed swallow exercises with NMES in place. Assessment Patient Response to Excellent Treatment Rehab Potential Excellent Impairments Swallow Identified Assessment of Improving Overall Progress Assessment of ST reviewed safe swallow strategies (sit upright, slow Improvement rate, small single bites/sips, alternate bites with sips, supraglottic swallow, etc.) with pt reporting having utilized these over the past week since initial evaluation and noting improvement in overt signs/ symptoms of dysphagia when utilized. 1. Chin tucks against resistance not complete d/t time constraint 2. Effortful swallows x30 at 9.0mA with intermittent small sips of water to facilitate swallow and PO trials of cindy cracker, pudding and diced peaches 3. Supraglottic swallow exercise not completed d/t time Pt reported no residue in throat when swallowing cindy cracker. Intermittent throat clearing with cindy cracker. Pt benefitted from alternating liquids and solids to assist with clearance. Pt consumed about 5 oz of thin water via cup. ST educated Pt on recommendation to continue swallow exercises at home and going forward with therapy. Reviewed with Goals,Progress Being Made,Home Exercise Program Patient Plan Amount of Therapy 3 Months Recommended Frequency of Once a Week Treatment Length of Session 30 Minutes Treatment Emphasis Swallow strategies, dysphagia exercises Next Session Therapeutic Contents Client Education,Swallowing/Feeding Provided Patient/ Home Exercise Program,Plan of Care,Questions/Concerns Caregiver Instruction
--- NOTE | 2025-04-24 15:06 | ST.OPDS ---
Visit Care Team Role Provider Type Doctor MD Myriam Family Provider Non-Staff Primary Care Provider Address: Phone: Fax: John Krishna MD Attending Provider Physician Referring Provider Address: [address] [place] [address], [id number] MAIL AGENT Treatment Note MAIL AGENT Treatment Note Start: 01/08/25 17:17 Freq: Status: Active Protocol: Document 04/24/25 14:38 MA (Rec: 04/24/25 14:45 MA Desktop) Speech Pathology Treatment Note Session Time Visit Start Time 14:30 Visit Stop Time 15:05 Total Visit Minutes 35 Visit Information Visit Number 11 Plan of Care Dates 04/11/25-07/12/25 Insurance Medicare; no PA, no copay, KX after 19 visits Information Setting Treatment Setting Outpatient Care Visit Type Note Type Treatment Note Next Note Type Next Note Type Discharge Summary General Information Patient History Pt is an 84 yo male who presented to [facility] Speech Therapy at the referral of Dr. Krishna for evaluation of dysphagia on 01/08/2025. Pt reported c/o globus sensation with solid foods and intermittent coughing and regurgitation of PO that has been occurring for ~2 years and gradually worsened over time . Pt denied medical hx of CVA, TBI, or other neurological disorders, PNA, COPD, or other respiratory disorders, and GERD. Pt reported his baseline diet is regular solids and thin liquids, although swallowing solids is effortful. Pt participated in a Modified Barium Swallow Study (MBSS) at [facility] on 2024 which revealed moderate pharyngeal dysphagia characterized by reduced tongue base retraction, reduced hyolaryngeal elevation, absent epiglottic inversion, incomplete laryngeal vestibule closure, and diminished pharyngeal stripping wave which resulted in pharyngeal residue as well as laryngeal penetration and tracheal aspiration which were silent in nature given pt did not reflexively respond. Of note, cued coughing was observed to partially clear laryngeal and tracheal residue. It was recommended the pt receive OP ST services targeting pharyngeal dysphagia with exercises and safe swallow strategies. Subjective Identification Type Name Observations/Patient Pt arrived to therapy on time unaccompanied. Pt was Presentation engaged, cooperative, and pleasant throughout the session. Pt reported completing HEP of safe swallow strategies which he noted helped to decrease s/sx of dysphagia as well as his swallowing exercises. He states he makes sure to eat slow. ST encouraged pt to continue HEP of safe swallow strategies and swallowing exercises, pt verbalized understanding. Pt reports he will be going to his condo in [place] for the next few months. ST plan to discharge patient at this time and recommend he get a new referral from PCP if swallowing gets worse. Chief Complaint(s) Swallowing Patient Knowledge/ Excellent Awareness of MAIL AGENT Role in Treatment Objective Short Term Goals STG1: Pt will use safe swallow strategies (sit upright, slow rate, small single bites/sips, alternate bites with sips, supraglottic swallow, etc.) independently to reduce risk of aspiration and facilitate clearance of bolus through pharynx. - MET STG2: Pt will perform exercises to increase strength of swallow musculature with emphasis on tongue base retraction, hyolaryngeal elevation, epiglottic inversion, laryngeal vestibule closure, and PPW constriction independently to improve swallow safety and efficiency. - MET STG3: Pt will tolerate application of NMES during swallow exercises in order to improve swallow safety and efficiency. - MET Mcfp Goals Pt will consume safest and least restrictive diet with no clinical signs and symptoms of pharyngeal dysphagia in order to meet nutrition/hydration needs and improve overall quality of life. - MET Treatment Activities Completed swallow exercises with NMES in place. Assessment Patient Response to Excellent Treatment Rehab Potential Excellent Impairments Swallow Identified Assessment of Improving Overall Progress Assessment of ST reviewed safe swallow strategies (sit upright, slow Improvement rate, small single bites/sips, alternate bites with sips, supraglottic swallow, etc.) with pt reporting having utilized these over the past week since initial evaluation and noting improvement in overt signs/ symptoms of dysphagia when utilized. 1. Chin tucks against resistance not complete d/t time constraint 2. Effortful swallows x30 at 9.0mA with intermittent small sips of water to facilitate swallow and PO trials of cindy cracker, pudding and diced peaches 3. Supraglottic swallow exercise not completed d/t time Pt reported no residue in throat when swallowing cindy cracker. Intermittent throat clearing with cindy cracker. Pt benefitted from alternating liquids and solids to assist with clearance. Pt consumed about 5 oz of thin water via cup. ST educated Pt on recommendation to continue swallow exercises as well as safe swallowing strategies Reviewed with Goals,Progress Being Made,Home Exercise Program Patient Patient/Caregiver Excellent Understanding Plan Amount of Therapy 3 Months Recommended Frequency of No Further Therapy Treatment Length of Session 30 Minutes Treatment Emphasis Swallow strategies, dysphagia exercises Next Session Therapeutic Contents Client Education,Swallowing/Feeding Provided Patient/ Home Exercise Program,Plan of Care,Questions/Concerns Caregiver Instruction
== END 2025-04-30 10:15 | disposition home or self-care (01) ==
LOC: SP 14:30
PROVIDERS: Referring Provider Otolaryngology; Visit Provider Otolaryngology
DX: R13.13 Dysphagia, pharyngeal phase (principal)
CPT/HCPCS: 92526; 92610